=== PATIENT | female | born 1980 | race Caucasian/White ===

== ENCOUNTER 2025-03-20 01:51 | Emergency (ER) | payer BC, SELFPAY ==
[2025-03-20 01:52] VITALS: BP 172/120
--- NOTE | 2025-03-20 02:06 | ED.GENMED ---
History of Present Illness
General
Chief Complaint: Anxiety
Source: patient
Exam Limitations: none
Time Seen by Provider: 03/20/25 01:58
History of Present Illness
History of Present Illness:
See MDM
Past History
Past History
ED Past Medical History: None
ED Past Surgical History: None
Social History
Tobacco: Non-smoker
Alcohol: None
Phy Exam
Physical Exam
Physical Exam:
See MDM
Course
Orders/Labs/Results
Orders:
Orders
03/20/25 02:05
Electrocardiogram (*1) Urgent
Reason for Study: Palpitations
EKG- Treatment ONCE
HydrOXYZINE [Atarax] 25 mg PO NOW STA
Test Result ONCE
03/20/25 02:47
Complete Blood Count/With Diff Urgent
Comprehensive Metabolic Panel Urgent
Free T4 Urgent
HCG, Serum Qualitative Screen Urgent
Comment: REDRAW
TSH Reflex To Free T4 Urgent
Abnormal Lab Results
03/20/25
02:47
Hct 36.8 L %
(37.0-47.0)
Chloride 109 H mmol/L
(98-107)
Glucose 110 H mg/dl
(70-99)
TSH (Reflex) 4.98 H uIU/ml
(0.47-4.68)
03/20/25 02:47
03/20/25 02:47
Vital Signs
Initial and Last Documented VS:
Initial Vital Signs
Temp Pulse Resp BP Pulse Ox
97.9 F 90 20 172/120 100
03/20/25 01:52 03/20/25 01:52 03/20/25 01:52 03/20/25 01:52 03/20/25 01:52
Last Documented Vital Signs
Temp Pulse Resp BP Pulse Ox
97.9 F 73 18 137/84 99
03/20/25 01:52 03/20/25 02:55 03/20/25 02:55 03/20/25 03:00 03/20/25 03:30
MDM/Problems Addressed
Differential Diagnosis Includes:
Note:
CHIEF COMPLAINT(S)
Blurred vision and anxiety-related symptoms.
HISTORY OF PRESENT ILLNESS
The patient is a 44-year-old female who presents with blurred vision and a sensation of rapid movement or anxiety, which she describes as feeling like 'everythings going so fast.' She reports that these symptoms are different from her usual
experiences, as she can typically manage them within 20 minutes. However, this episode has persisted for a few days and was noticeable when she returned to work yesterday, leading her to squint again. She denies any history of anxiety or depression
diagnoses or previous regular headache issues such as tension or migraine. There is mention that this is not a normal occurrence but rather sporadic and infrequent. The patient reports that she wears contact lenses, which felt blurry initially but
improved. Her contact lens prescription is up to date. At the moment, she states her blurry vision has improved
SOCIAL DETERMINANTS AFFECTING HEALTH
The patient hints at some life stressors but does not specifically disclose details about particular stressors or social circumstances impacting her health. She mentions concern or worry about something that might be more significant, which could
potentially play a role in her current symptoms.
REVIEW OF SYSTEMS
- Eyes: Blurry vision when wearing contact lenses, now improved.
- Neurologic: No history of diagnosed headache disorders.
- Psychiatric: Reports of atypical anxiety-like symptoms without a formal diagnosis.
PHYSICAL EXAM
General: Alert, no acute distress.
Skin: Warm, dry.
Head: Normocephalic, atraumatic
Neck: Appears supple, trachea midline.
Eyes, Ears, Nose, Mouth, and Throat: Moist mucous membranes. Pupils equal reactive. EOMI
Cardiovascular: No signs of cyanosis. Regular rate and rhythm
Respiratory: Respirations are non-labored. Lungs clear
Abdomen: Non-distended
Musculoskeletal: No deformities
Neurological: No focal neurological deficit observed.
Psychiatric: Mildly anxious
PROBLEM LIST
Acute Problems:
- Blurred vision
- Anxiety-related symptoms
PLAN
- Perform laboratory tests to assess thyroid function and blood work.
- Obtain an electrocardiogram to rule out cardiac causes of symptoms.
- Provide reassurance to the patient by ruling out serious conditions.
- Prescribe Hydroxyzine for symptomatic relief, as it is non-habit forming and safe.
- Discuss lifestyle adjustments and coping mechanisms for managing stress if symptoms persist.
DIFFERENTIAL DIAGNOSIS
The Differential Diagnosis includes, in no particular order and is not limited to:
- Anxiety disorder
- Vision changes associated with contact lenses
- Thyroid dysfunction
- Migraine with aura
- Tension headache
- Cardiac arrhythmia
- Vertigo
- Hyperventilation syndrome
- Medication side effects
- Stress-related symptoms
SUMMARY OF ENCOUNTER
The 44-year-old female patient presented to the emergency department with complaints of intermittent blurred vision and tachycardia. She was unsure if these symptoms were related to anxiety. After the administration of hydroxyzine, her symptoms
improved. A review of her blood work showed no significant abnormalities. On reassessment, the patient reported feeling much better. It was discussed with her that the symptoms are likely [id number], emphasizing the importance of follow-up
with a primary care physician. The patient expressed comfort with this plan.
EMERGENCY TREATMENTS ADMINISTERED
A dose of hydroxyzine was administered to the patient, which helped alleviate her symptoms.
REASSESSMENT
Multiple reassessments indicated that the patient was feeling significantly better.
PATIENT EDUCATION AND COUNSELING
The patient was informed that her symptoms were likely [id number]. She was advised on the importance of following up with her primary care physician.
FOLLOW-UP INSTRUCTIONS
The patient was advised to follow up with her primary care doctor for further evaluation and management.
MEDICATION RECONCILIATION
The patient received a dose of hydroxyzine during her visit.
MEDICAL DECISION MAKING
- Complexity of Data Reviewed: The differential diagnosis list includes anxiety-related symptoms, musculoskeletal pain, gastroesophageal reflux disease, costochondritis, myocardial infarction, angina pectoris, pulmonary embolism, pericarditis,
aortic dissection, and pneumothorax.
- Data:
Category 1: Blood work reviewed, showing no significant abnormalities.
- Risk: Consideration of Admission/Observation: Escalation of care including admission/observation was considered given the complexity and risk of the patients presenting complaint, exam findings, and/or their underlying comorbidities. However,
ultimately it was felt the patient is safe for outpatient management with close follow-up. Reasoning: Work-up reassuring, does not reveal any acute life/organ threatening processes, patients symptoms well controlled upon reevaluation, reexamination
is reassuring, vitals are stable, patient agreeable with discharge, reliable for follow-up.
DIAGNOSIS
- Unspecified anxiety disorder (ICD-10: F41.9)
*Pulse Oximetry
SaO2: 100
Oxygen Mode of Delivery: Room air
Patient hypoxic: no
*EKG
Interpreted by ED Provider?: Yes
EKG Intrepretation Date: 03/20/25
Interpretation: normal (Sinus rhythm at 77 bpm, normal axis, no ST elevation noted)
*Critical Care Note
Total Time (30-74mins, 75-104mins- exclusive of procedures): Not Applicable
ED Attending Note
-
Portions of this chart may have been created with voice recognition software.� Occasional wrong word or��sound alike� substitutions may have occurred due to the inherent limitations of voice recognition software.
Discharge Plan
Departure
Patient Disposition: Home (Routine Discharge)
Date of Disposition: 03/20/25
Time of Disposition: 04:50
Patient with high blood pressure during this ER visit?: No
Discharge Problem:
Heart palpitations
Instructions: Palpitations - ED (DC)
Prescriptions:
New
hydroxyzine HCl 25 mg tablet
25 mg PO BID PRN (Reason: anxiety) Qty: 20 0RF
Referrals:
Imer Ryan CRNP [Family Provider, General]
Activity Restrictions/Additional Instructions:
Please return for any worsening symptoms.
You may return at any time if you have further concerns.
Please follow up with your doctor at the first available appointment, preferably this week.
Thank you for choosing [facility].
Interventions
Interventions:
*Risk Screen - Suicide Last Done: 03/20/25 01:52
*General Assessment Last Done: 03/20/25 02:10
*Neglect/Abuse Screening Last Done: 03/20/25 01:52
*ED- Fall Risk Assessment Last Done: 03/20/25 02:10
*ED COVID-19 Vaccine History Last Done: 03/20/25 02:10
*ED Influenza Vaccine History Last Done: 03/20/25 02:10
ED- Cardiac Assessment Last Done: 03/20/25 02:11
ED- Neurological Assessment Last Done: 03/20/25 02:11
ED-Psychological Assessment Last Done: 03/20/25 02:11
ED- Pulmonary Assessment Last Done: 03/20/25 02:11
Discharge Date and Time
Print Language: TAJIK
[2025-03-20 02:11] VITALS: BMI 36.7
[2025-03-20] MEDS: ATARAX 25 MG PO (02:13)
[2025-03-20 02:21] VITALS: BP 154/112
[2025-03-20 03:00] VITALS: BP 137/84
[2025-03-20 03:20] LABS: Hematocrit 36.8 % (37.0-47.0); Hemoglobin 13.3 g/dL (12.0-16.0); Mean Corp Hgb Conc. 36.1 g/dL (33.0-37.0); Mean Corpuscular Volume 82.7 fL (81.0-99.0); Nucleated Red Blood Cells % 0 %; Platelet Count 245 10^3/uL (130-400); Red Cell Dist. Width 12.2 % (11.5-14.5)
[2025-03-20 03:30] LABS: HCG, Serum Qualitative Screen Negative
[2025-03-20 03:41] LABS: ALT (SGPT) 23 U/L (0-35); AST (SGOT) 22 U/L (14-36); Albumin 4.4 g/dl (3.5-5.0); Alkaline Phosphatase 65 U/L (38-126); Blood Urea Nitrogen 16 mg/dl (7-17); Calcium 9.1 mg/dl (8.4-10.2); Carbon Dioxide 24 mmol/L (22-30); Chloride 109 mmol/L (98-107); Estimated Creatinine Clearance 100 ml/min; Glucose 110 mg/dl (70-99); Potassium 3.9 mmol/L (3.5-5.1); Sodium 140 mmol/L (135-145); Total Protein 6.8 g/dl (6.3-8.2); eGFR > 60.00
== END 2025-03-20 05:03 | disposition home or self-care (01) ==
LOC: EMR 01:51
PROVIDERS: EMERGENCY PHYSICIAN Student in an Organized Health Care Education/Training Program; FAMILY PHYSICIAN Nurse Practitioner Primary Care
DX: R00.2 Palpitations (principal)
CPT/HCPCS: 99284; 80053; 84439; 84443; 84703; 85025; 93005